=== PATIENT | female | born 1990 | race Caucasian/White ===

== ENCOUNTER 2017-08-04 06:46 | Day surgery (SDC) | payer OTHER ==
[~2017-08-04 06:46] MED LIST: Buffered Lidocaine 0.9% SYRIN* 5 ML/SYR SYRINGE INTRADERM ONE; Dexamethasone IV* 4 MG/ML 1 ML (4 MG) IV SLOW PU ONE; Famotidine IV* 10 MG/ML 2 ML (20 mg) IV ONE
[2017-08-04] MEDS ORDERED: Dexamethasone IV* 4 MG/ML 1 ML (4 MG) ONE (06:59)
[2017-08-04] MEDS ORDERED: Famotidine IV* 10 MG/ML 2 ML (20 mg) ONE (06:59)
[2017-08-04] MEDS ORDERED: ceFAZolin 2 GM PREMIX (*) 2 GM/50 ML BAG IVPB ONE (07:19)
[2017-08-04] MEDS ORDERED: Atracurium* 10 MG/ML 10 ML VIAL ONE (08:13)
[2017-08-04] MEDS ORDERED: fentaNYL* 50 MCG/ML 2 ML VIAL (100 MCG VIAL) ONE (08:13)
[2017-08-04] MEDS ORDERED: Midazolam* 1 MG/ML 10 ML VIAL (10 MG) ONE (08:13)
[2017-08-04] MEDS ORDERED: Propofol* 10 MG/ML 20 ML BTL IV PUSH ONE (08:14)
[2017-08-04] MEDS ORDERED: Ondansetron INJ* 2 MG/ML VIAL ONE (08:14)
[2017-08-04] MEDS ORDERED: Ketorolac INJ* 30 MG/ML 1 ML VIAL ONE (08:14)
[2017-08-04] MEDS ORDERED: ROPIVACAINE 5 MG/ML 30 ML BTL (0.5%) ONE (08:14)
[2017-08-04] MEDS ORDERED: Bupivacaine 0.5% SDV PF* 10-30ML VIAL ONE (08:22)
[2017-08-04] MEDS ORDERED: Ondansetron INJ* 2 MG/ML VIAL IV PRN (09:25)
[2017-08-04] MEDS ORDERED: Naloxone* 0.4 MG/ML 1 ML VIAL IV PRN (09:25)
[2017-08-04] MEDS ORDERED: DiMENhydriNATE IV* 50 MG/ML VIAL IV PUSH PRN (09:25)
[2017-08-04] MEDS ORDERED: oxyCODONE/Acetamin 5/325 MG* TAB PO PRN (09:25)
[2017-08-04] MEDS ORDERED: fentaNYL* 50 MCG/ML 2 ML VIAL (100 MCG VIAL) IV PRN (09:25)
[2017-08-04 12:36] VITALS: BP 99/62
--- NOTE | 2017-08-04 15:50 | RAD ---
INDICATION: Left elbow operative reduction internal fixation. COMPARISON: Comparison is made with a prior CT of the left elbow from [facility] 2017. TECHNIQUE: 134.4 seconds of intermittent fluoroscopic guidance were provided and routine spot films of the left elbow were obtained in the operating room. FINDINGS: The films demonstrate operative reduction internal fixation of the displaced fracture of the olecranon process of the elbow. A surgical plate is been placed along the posterior aspect of the proximal ulna spanning the fracture fragments transfixed with multiple screws. The bones are in normal alignment. IMPRESSION: INTRAOPERATIVE CONTROL FILMS. CPT II Codes: 6045F
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
== END 2017-08-04 12:47 | disposition home or self-care (01) ==
LOC: OR 06:46
PROVIDERS: ATTEND Orthopaedic Surgery
DX: S52.022A Displaced fracture of olecranon process without intraarticular extension of left ulna, initial encounter for closed fracture (principal); V18.0XXA Pedal cycle driver injured in noncollision transport accident in nontraffic accident, initial encounter; Y93.55 Activity, bike riding; Y92.89 Other specified places as the place of occurrence of the external cause; D64.9 Anemia, unspecified
CPT/HCPCS: 76001; 81025; C1713; C1725; J0690; J1100; J1885; J2250; J2405; J2704; J2795; J3010